=== PATIENT | male | born 1950 | race Caucasian/White ===

== ENCOUNTER 2021-11-15 19:26 | Emergency (ER) | payer OTHER, MEDICARE ==
[2021-11-15 20:35] LABS: CORONAVIRUS COVID-19 NAA POSITIVE (NEGATIVE); RESPIRATORY SYNCYTIAL VIR NAA NEGATIVE (NEGATIVE)
== END 2021-11-15 20:53 | disposition home or self-care (01) ==
LOC: VM.ED 19:26
DX: U07.1 COVID-19 (principal); E78.00 Pure hypercholesterolemia, unspecified; I10 Essential (primary) hypertension; K21.9 Gastro-esophageal reflux disease without esophagitis; E11.9 Type 2 diabetes mellitus without complications; E66.9 Obesity, unspecified; Z68.37 Body mass index [BMI] 37.0-37.9, adult; Z88.8 Allergy status to other drugs, medicaments and biological substances; Z79.82 Long term (current) use of aspirin; Z79.899 Other long term (current) drug therapy; Z86.16 Personal history of COVID-19; Z79.84 Long term (current) use of oral hypoglycemic drugs
CPT/HCPCS: 0241U; 71046; 99283

== ENCOUNTER 2024-09-13 07:37 | Day surgery (SDC) | payer MEDICARE, OTHER ==
[2024-09-13] MEDS: Lactated Ringers 1,000 ML IV SCH (07:59)
[2024-09-13] MEDS ORDERED: Midazolam 1 MG/ML 2 ML SDV ONE (08:24)
[2024-09-13] MEDS ORDERED: fentaNYL 100 MCG/2 ML SDV ONE (08:24)
[2024-09-13] MEDS ORDERED: Propofol 200 MG/20 ML SDV ONE (08:24)
[2024-09-13] MEDS ORDERED: ePHEDrine 50 MG/ML SDV ONE (09:20)
== END 2024-09-13 10:38 | disposition home or self-care (01) ==
LOC: VM.SDS 07:37
PROVIDERS: ATTEND Family Medicine
DX: Z12.11 Encounter for screening for malignant neoplasm of colon (principal); D12.0 Benign neoplasm of cecum; K63.5 Polyp of colon; K57.30 Diverticulosis of large intestine without perforation or abscess without bleeding; I10 Essential (primary) hypertension; E11.9 Type 2 diabetes mellitus without complications; E66.9 Obesity, unspecified; E03.9 Hypothyroidism, unspecified; Z79.82 Long term (current) use of aspirin; Z79.84 Long term (current) use of oral hypoglycemic drugs; Z68.32 Body mass index [BMI] 32.0-32.9, adult; Z79.899 Other long term (current) drug therapy; Z86.0100 Personal history of colon polyps, unspecified
CPT/HCPCS: 00811; 82947; 88305; 99100; J2250; J2704; J3010; J3490; J7120